=== PATIENT | male | born 1965 | race Caucasian/White ===

== ENCOUNTER 2017-02-28 09:24 | Outpatient (CLI) | payer MEDICARE, OTHER | END 2017-02-28 09:25 | disposition home or self-care (01) | LOC: RT 09:24 | PROVIDERS: ATTEND Orthopaedic Surgery Orthopaedic Surgery of the Spine | DX: Z01.810 Encounter for preprocedural cardiovascular examination (principal) | CPT/HCPCS: 93005 ==

== ENCOUNTER 2019-05-04 16:25 | Outpatient (CLI) | payer MEDICARE, OTHER ==
[2019-05-04 17:01] LABS: BASOPHILS % (AUTO) 0.7 %; EOSINOPHILS # (AUTO) 0.2 10^3/uL (0.0-0.7); EOSINOPHILS % (AUTO) 4.1 %; HGB - HEMOGLOBIN 14.8 g/dL (14.0-18.0); LYMPHOCYTES # (AUTO) 1.6 10^3/uL (1.5-3.5); MEAN CORPUSCULAR HEMOGLOBIN 30.3 pg (27.0-31.0); MEAN CORPUSCULAR HGB CONC 33.4 g/dL (32.0-36.0); MEAN CORPUSCULAR VOLUME 90.6 fL (80.0-94.0); MONOCYTES # (AUTO) 0.6 10^3/uL (0.0-1.0); MONOCYTES % (AUTO) 11.5 %; NEUTROPHILS # (AUTO) 2.9 10^3/uL (1.5-6.6); NEUTROPHILS % (AUTO) 54.3 %; PLT - PLATELET COUNT 248 10^3/uL (130-450); RED BLOOD COUNT 4.89 10^6/uL (4.70-6.10); RED CELL DISTRIBUTION WIDTH 12.8 % (12.0-15.0); WHITE BLOOD COUNT 5.4 x10^3/uL (4.8-10.8)
[2019-05-04 17:19] LABS: CREATININE 0.9 mg/dL (0.6-1.2)
== END 2019-05-04 16:26 | disposition home or self-care (01) ==
LOC: LAB 16:25
PROVIDERS: ATTEND Orthopaedic Surgery Orthopaedic Surgery of the Spine
DX: Z01.812 Encounter for preprocedural laboratory examination (principal); Z01.818 Encounter for other preprocedural examination
CPT/HCPCS: 36415; 80048; 85025; 93005

== ENCOUNTER 2022-08-19 23:55 | Outpatient (CLI) | payer MEDICARE, OTHER | END 2022-08-19 23:56 | disposition critical access hospital (66) | LOC: EMS 23:55 | DX: S51.812A Laceration without foreign body of left forearm, initial encounter (principal); S31.831A Laceration without foreign body of anus, initial encounter; W18.12XA Fall from or off toilet with subsequent striking against object, initial encounter; Y92.002 Bathroom of unspecified non-institutional (private) residence as the place of occurrence of the external cause | CPT/HCPCS: A0425; A0429 ==

== ENCOUNTER 2022-08-20 00:29 | Emergency (ER) | payer MEDICARE, OTHER ==
[2022-08-20] MEDS ORDERED: BACITRACIN ZINC OINT 1 PACKET TOP STA ×2 (00:44→01:10)
[2022-08-20] MEDS ORDERED: MORPHINE 2 MG/ML CARPUJECT IM STA (00:44)
--- OUTSIDE RECORDS SUMMARY | 2022-08-20 00:46 | EXTERNAL MEDICAL SUMMARY RPT | Continuity of Care Document ---
:1965 Author Organization [facility] Address [address] [place] [address] Phone Allergies No information. Encounters No information. Functional Status No information. Immunizations No information. Medications No information. Problems date description facility 2022-06-19 14:08 Unspecified visual disturbance [facility] 2022-06-19 14:08 Other malformations of cerebral vessels [facility] 2022-06-19 14:08 Headache, unspecified [facility] Procedures No information. Results/Labs No information. Social History No information. Vital Signs No information.
--- NOTE | 2022-08-20 00:58 | ED Physician Documentation ---
PD HPI SKIN - Stated complaint Stated Complaint: LEFT FOREARM LAC - Chief complaint Chief Complaint: Laceration - History obtained from History obtained from: Patient, Family (son), EMS - Additional information Additional information: 57-year-old man with past medical history of Left lower extremity paralysis presents after falling onto a metal piece of furniture and cutting the skin along his anus. Also has an abrasion to the left forearm.Denies head trauma or other injury. tdap utd. Review of Systems Skin: reports: Laceration (s) PD PAST MEDICAL HISTORY - Past Medical History Cardiovascular: High cholesterol Respiratory: Other Endocrine/Autoimmune: Other GI: GERD, Ulcers : None HEENT: None Psych: Post traumatic stress disorder Musculoskeletal: Osteoarthritis, Fatigue, Chronic back pain Derm: None, Other - Past Surgical History General: Other Ortho: Arthroscopic surgery HEENT: Tonsil/Adenoidectomy Derm: Skin cancer surgery - Present Medications Home Medications: Ambulatory Orders Medication Instructions Recorded Confirmed Atorvastatin Calcium 40 mg PO DAILY 08/20/22 08/20/22 Gabapentin [Neurontin] 300 mg PO TID 08/20/22 08/20/22 Hydrocodone/Acetaminophen 1 tab PO DAILY PRN 08/20/22 08/20/22 [Hydrocodone-Acetamin 7.5-300] Loratadine [Claritin] 10 mg PO DAILY PRN 08/20/22 08/20/22 Losartan Potassium [Cozaar] 100 mg PO DAILY 08/20/22 08/20/22 Sennosides/Docusate Sodium 1 each PO QDAC PRN #30 tablet 08/20/22 [Senna-Docusate Sodium Tablet] Sertraline HCl [Zoloft] 50 mg PO DAILY 08/20/22 08/20/22 Thyroid,Pork [[place] Thyroid] 90 mg PO DAILY 08/20/22 08/20/22 methocarbamoL [Methocarbamol] 500 mg PO DAILY PRN 08/20/22 08/20/22 polyethylene glycoL 3350 [Miralax] 17 gm PO DAILY #15 packet 08/20/22 traZODone [Desyrel] 50 mg PO QPM 08/20/22 08/20/22 - Allergies Allergies/Adverse Reactions: Allergies Allergy/AdvReac Type Severity Reaction Status Date / Time Pork/Porcine Containing Allergy Respiratory Verified 08/20/22 00:42 Products oxycodone HCl * AdvReac Intermediate Nausea Verified 08/20/22 00:42 [From Percocet] - Social History Does the pt smoke?: No Smoking Status: Never smoker Does the pt drink ETOH?: No Does the pt have substance abuse?: No PD ED PE NORMAL - Vitals Vital signs reviewed: Yes - General General: Alert and oriented X 3, No acute distress, Well developed/nourished - Rectal Rectal: Other (macerated laceration of anus at midline across from perineum along an external hemorrhoid. MAICO with good rectal tone and intact band of anal phincters) - Derm Derm: Other (abrasion L forearm) - Psych Psych: Normal mood, Normal affect Results - Vitals Vitals: Vital Signs - 24 hr 08/20/22 00:39 Temperature 37.1 C Heart Rate 81 Respiratory 20 Rate Blood Pressure 141/81 H O2 Saturation 97 Oxygen O2 Source Room air PD Medical Decision Making - ED course ED course: 57-year-old man presented with macerated anal laceration overlying external hemorrhoid. Analgesia provided and rectal exam was performed with no evidence of anal sphincter injury. 2cc lidocaine with epi instilled, bacitracin and dressing applied. tissue is too macerated for repair but will send him home with recommendation for bowel regimen, squeegee bottle/ symptomatic care, and 48-72 hour follow up for wound check. return precautions given. Departure - Departure Disposition: 01 Home, Self Care Clinical Impression: Maceration of periwound skin Condition: Good Instructions: ED Laceration All Follow-Up: Catrachita Hernandez MD [Provider Admit Priv/Credential] - Prescriptions: polyethylene glycoL 3350 [Miralax] 17 gm PO DAILY #15 packet Sennosides/Docusate Sodium [Senna-Docusate Sodium Tablet] 1 each PO QDAC PRN #30 tablet PRN Reason: Constipation Comments: You are seen in the emergency department for laceration of the anus. The tissue is highly macerated (ripped up) being monitored and kept extremely clean. Whenever you use the bathroom make sure that you wash gently clean with a squeegee bottle of warm water. You can also apply topical over the counter antibiotic ointment to the affected area. I am prescribing senna/docusate and miralax to help keep your stools soft and regular. Please follow-up with general surgery clinic with Dr. Hernandez for wound check this week.
[2022-08-20 01:50] VITALS: BP 128/89
== END 2022-08-20 01:50 | disposition home or self-care (01) ==
LOC: ED 00:29
DX: S31.831A Laceration without foreign body of anus, initial encounter (principal); S50.812A Abrasion of left forearm, initial encounter; W18.12XA Fall from or off toilet with subsequent striking against object, initial encounter; Y93.E8 Activity, other personal hygiene; Y92.002 Bathroom of unspecified non-institutional (private) residence as the place of occurrence of the external cause
CPT/HCPCS: 96372; 99283

== ENCOUNTER 2022-08-20 17:32 | Emergency (ER) | payer MEDICARE, OTHER ==
[2022-08-20 18:18] LABS: BASOPHILS % (AUTO) 0.3 %; EOSINOPHILS # (AUTO) 0.1 10^3/uL (0.0-0.7); EOSINOPHILS % (AUTO) 1.5 %; HCT - HEMATOCRIT 46.5 % (42.0-52.0); LYMPHOCYTES # (AUTO) 1.2 10^3/uL (1.5-3.5); LYMPHOCYTES % (AUTO) 12.7 %; MEAN CORPUSCULAR HEMOGLOBIN 29.7 pg (27.0-31.0); MEAN CORPUSCULAR HGB CONC 32.3 g/dL (32.0-36.0); MEAN CORPUSCULAR VOLUME 92.1 fL (80.0-94.0); MEAN PLATELET VOLUME 8.9 fL (7.4-11.4); MONOCYTES # (AUTO) 1.2 10^3/uL (0.0-1.0); NEUTROPHILS # (AUTO) 6.7 10^3/uL (1.5-6.6); NEUTROPHILS % (AUTO) 72.2 %; PLT - PLATELET COUNT 228 10^3/uL (130-450); RED BLOOD COUNT 5.05 10^6/uL (4.70-6.10); WHITE BLOOD COUNT 9.3 x10^3/uL (4.8-10.8)
[2022-08-20 18:30] LABS: ALBUMIN 4.3 g/dL (3.2-5.5); ALBUMIN/GLOBULIN RATIO 1.5 (1.0-2.2); BILIRUBIN,TOTAL 0.8 mg/dL (0.2-1.0); CALCIUM 9.4 mg/dL (8.5-10.3); CREATININE 0.7 mg/dL (0.6-1.2); POTASSIUM 3.8 mmol/L (3.5-5.0); TOTAL PROTEIN 7.1 g/dL (6.7-8.2)
--- NOTE | 2022-08-20 18:34 | CT Report ---
PROCEDURE: LUMBAR SPINE WO INDICATIONS: fall from wheelchair; stool/bladder incontinence TECHNIQUE: Noncontrast 3 mm thick sections acquired from the T12 level to the sacrum. Sagittal and coronal refo rmats were constructed. For radiation dose reduction, the following was used: automated exposure co ntrol, adjustment of mA and/or kV according to patient size. COMPARISON: 01/17/2015 FINDINGS: Image quality: Degraded by motion and metallic artifact Bones: Extensive posterior fusion hardware is present with interbody spacers at multiple levels. Ghos t tracks are present, indicating prior revisions. T12 corpectomy cage. No definite acute hardware failure. Soft tissues: There is a limited evaluation of the thecal sac without definite stenosis. There are no nobstructing bilateral renal calculi, partially seen. IMPRESSION: Significant imaging limitations as above. No definitely acute abnormality. Reviewed by: Rashaun Chow MD on 08/20/2022 6:33 PM PST Approved by: Rashaun Chow MD on 08/20/2022 6:33 PM PST Station ID: [id number]
[2022-08-20] MEDS ORDERED: HYDROmorphone 1 MG/ML CARPUJECT IVP STA ×2 (21:17→21:42)
--- NOTE | 2022-08-20 21:26 | ED Physician Documentation ---
History of Present Illness - Stated complaint Stated Complaint: BACK PX - Chief complaint Chief Complaint: Back Pain - Additonal information Additional information: History obtained from patient. He is a moderate historian. This 57-year-old gentleman presents to the emergency department under the advice of his neurosurgeon Dr. Kimble Associated with the [facility]'s. This patient has a longstanding history of back pain for which he had received extensive spinal fusion. Unfortunately over the course of his care he did develop some paralysis of his lower extremities. At baseline the patient is typically in a wheelchair though he can occasionally take a few steps with a walker. He is typically able to stand and transfer between wheelchair and toilet. Yesterday evening he was attempting to transfer between the wheelchair and toilet when he fell. He did sustain a laceration near his rectum. He was seen in this emergency department to receive wound care. He states that since being discharged he has had progressive numbness in his lower extremities. Especially the medial or inside portion. He also states that he has begun to have some genital numbness in his perineum scrotum and penis. He states he has been incontinent of stool though he did call that diarrheal. The ED provider last night noted normal rectal tone. Patient has not had any fevers. He was speaking with his neurosurgeon today regarding his worsening numbness though no new weakness and he was advised to come to the ER to obtain an MRI. Unfortunately at this hour of the day MRI is not available and will not be available until tomorrow in the morning. Meds: Gabapentin, omeprazole, [place], duloxetine, [place] Thyroid PD PAST MEDICAL HISTORY - Past Medical History Past Medical History: Yes Cardiovascular: High cholesterol Respiratory: Other Endocrine/Autoimmune: Other GI: GERD, Ulcers : None HEENT: None Psych: Post traumatic stress disorder Musculoskeletal: Osteoarthritis, Fatigue, Chronic back pain Derm: None, Other - Past Surgical History Past Surgical History: Yes General: Other Ortho: Arthroscopic surgery HEENT: Tonsil/Adenoidectomy Derm: Skin cancer surgery - Present Medications Home Medications: Ambulatory Orders Medication Instructions Recorded Confirmed Atorvastatin Calcium 40 mg PO DAILY 08/20/22 08/20/22 Gabapentin [Neurontin] 300 mg PO TID 08/20/22 08/20/22 Hydrocodone/Acetaminophen 1 tab PO DAILY PRN 08/20/22 08/20/22 [Hydrocodone-Acetamin 7.5-300] Loratadine [Claritin] 10 mg PO DAILY PRN 08/20/22 08/20/22 Losartan Potassium [Cozaar] 100 mg PO DAILY 08/20/22 08/20/22 Sennosides/Docusate Sodium 1 each PO QDAC PRN #30 tablet 08/20/22 [Senna-Docusate Sodium Tablet] Sertraline HCl [Zoloft] 50 mg PO DAILY 08/20/22 08/20/22 Thyroid,Pork [[place] Thyroid] 90 mg PO DAILY 08/20/22 08/20/22 methocarbamoL [Methocarbamol] 500 mg PO DAILY PRN 08/20/22 08/20/22 polyethylene glycoL 3350 [Miralax] 17 gm PO DAILY #15 packet 08/20/22 traZODone [Desyrel] 50 mg PO QPM 08/20/22 08/20/22 - Allergies Allergies/Adverse Reactions: Allergies Allergy/AdvReac Type Severity Reaction Status Date / Time Pork/Porcine Containing Allergy Respiratory Verified 08/20/22 17:44 Products oxycodone HCl * AdvReac Intermediate Nausea Verified 08/20/22 17:44 [From Percocet] - Social History Does the pt smoke?: No Smoking Status: Never smoker Does the pt drink ETOH?: No Does the pt have substance abuse?: No - Immunizations Immunizations are current?: Yes PD ED PE NORMAL - General General: Alert and oriented X 3, No acute distress, Well developed/nourished - Male Male : Other (Significant numbness in the perineum scrotum and ventral side of the penis) - Rectal Rectal: Other (Painful rectal exam. External hemorrhoid is noted. A macerated laceration abutting the edge of the anus is seen without surrounding erythema or purulence. Moderate serous drainage. I could not assess rectal tone due to discomfort) - Derm Derm: Normal color, Warm and dry - Extremities Extremities: Other (Patient is able to wiggle the toes on the right foot and lift the lower leg 3 inches off the bed. He cannot resist. Patient has movement of the left great toe only and can raise the leg 1 inch off bed without resistance). No: No calf tenderness / cord (Patient has new numbness medial bi lateral lower extremities feet calf and thighs; He is aware of touch but unable to differentiate sharp from dull. Lateral sensation appears preserved) - Neuro Neuro: Alert and oriented X 3, streetcar conductor 2-12 intact Eye Opening: Spontaneous Motor: Obeys Commands Verbal: Oriented GCS Score: 15 Results - Vitals Vitals: Vital Signs - 24 hr 08/20/22 08/20/22 08/20/22 17:39 17:44 19:44 Temperature 36.2 C L 36.5 C Heart Rate 90 90 88 Respiratory 16 16 16 Rate Blood Pressure 155/85 H 155/85 H 150/80 H O2 Saturation 95 95 96 08/20/22 21:00 Temperature Heart Rate 78 Respiratory 16 Rate Blood Pressure 124/85 H O2 Saturation 96 Oxygen O2 Source Room air - Labs Labs: Laboratory Tests 08/20/22 08/20/22 18:13 18:13 WBC 9.3 RBC 5.05 Hgb 15.0 Hct 46.5 MCV 92.1 MCH 29.7 MCHC 32.3 RDW 13.0 Plt Count 228 MPV 8.9 Neut # (Auto) 6.7 H Lymph # (Auto) 1.2 L [place] # (Auto) 1.2 H Eos # (Auto) 0.1 Baso # (Auto) 0.0 Absolute Nucleated RBC 0.00 Nucleated RBC % 0.0 Sodium 139 Potassium 3.8 Chloride 105 Carbon Dioxide 25 Anion Gap 9.0 BUN 14 Creatinine 0.7 Estimated GFR (MDRD) 117 Glucose 123 H Calcium 9.4 Total Bilirubin 0.8 AST 42 ALT 41 Alkaline Phosphatase 110 Total Protein 7.1 Albumin 4.3 Globulin 2.8 Albumin/Globulin Ratio 1.5 Lipase 31 - Rads (name of study) Ct lumbar Radiology: Final report received (Significant imaging limitations, no definite acute abnormality. Extensive posterior fusion hardware) PD Medical Decision Making - ED course Complexity details: reviewed results, re-evaluated patient, considered differential, d/w patient ED course: 57-year-old male presents to the emergency department for evaluation of increasing numbness in his bilateral lower extremities after a fall when transitioning between toilet and wheelchair yesterday. He did come into the emergency department because he had a laceration abutting his anus that was cleansed. He unfortunately has a history of paralysis in his lower extremities after extensive hardware fusion. However the new symptom over the last 24 hours has been the development of numbness in his lower inner feet and thighs as well as within his perineum and genitalia. I did do a rectal exam and he found it to be painful and could not complete a rectal tone check. We did do a bladder scan after void and found that he voided 500 mils and there was a residual volume of 200 mL. Patient has been in contact with his neurosurgeon who advised he come to the ER for an MRI but unfortunately at the time he arrived the MRI was no longer available. We did complete a CT scan of his lumbar spine that showed intact hardware. We also attempted multiple times to get in touch with his neurosurgeon but were [facility] as we were told that after 5 they have nobody patient companion. I did offer the patient to board overnight in the emergency department to get the MRI in the a.m. but he would prefer to go home tonight and return in the morning. I feel this is a reasonable alternative as the likelihood of transfer to an outside facility is extremely unlikely given the paucity of beds regionally. Patient was administered 10 mg of Decadron IV prior to discharge. He will return early in the a.m. at which time the MRI can be reordered and further evaluation will resume. Departure - Departure Disposition: 01 Home, Self Care Clinical Impression: Saddle anesthesia Condition: Stable Record reviewed to determine appropriate education?: Yes Comments: Ash you are advised to come to the emergency department after a fall at home yesterday and unfortunately you have begun to develop some numbness on the inside of both your legs as well as in your genital region. This is called saddle anesthesia. Your CT of the lumbar spine today showed intact hardware however your neurosurgeon would like you to get an MRI. By the time you arrived to our emergency department our MRI scanner was no longer operational for the day. We did offer to have you board in the emergency department overnight to obtain the MRI tomorrow but you prefer to be discharged home and return in the morning which is a reasonable solution at this time. In order to help with some of the numbness I am giving you a one-time dose of Decadron IV. If there is any inflammation this could help with swelling. Please return to the emergency department as soon as possible in the morning between 7 and 8 AM to check in and be seen by the ED provider. At that time the MRI can be ordered
[2022-08-20] MEDS ORDERED: DEXAMETHASONE 10 MG/ML VIAL IV STA (21:36)
[2022-08-20] MEDS ORDERED: HYDROmorphone 1 MG/ML CARPUJECT ONE (21:44)
[2022-08-20 21:52] VITALS: BP 144/78
== END 2022-08-20 21:51 | disposition home or self-care (01) ==
LOC: ED 17:32
DX: R20.0 Anesthesia of skin (principal); G83.89 Other specified paralytic syndromes; S31.831A Laceration without foreign body of anus, initial encounter; S50.812A Abrasion of left forearm, initial encounter; W18.12XA Fall from or off toilet with subsequent striking against object, initial encounter; Y93.E8 Activity, other personal hygiene
CPT/HCPCS: 36415; 51798; 72131; 80053; 83690; 85025; 96372; 96374; 96375; 99283; 99284; A9270; J1170

== ENCOUNTER 2022-08-21 07:32 | Emergency (ER) | payer MEDICARE, OTHER ==
--- NOTE | 2022-08-21 08:00 | ED Physician Documentation ---
PD HPI BACK PAIN - Stated complaint Stated Complaint: LEG WEAKNESS/NUMBNESS - Chief complaint Chief Complaint: Ext Problem - History obtained from History obtained from: Patient - History of Present Illness Timing - onset: How many days ago (he states he fell while transferring and landed onto object (magazine rack?) causing small lac and large bruising/tender in gluteal and perirectal area couple days ago. Was then having development of numbness in penis and some rectal incontinence and some feeling of numbness down back of right leg.), Other (was here to ER last evening and told to come back for MRI to ensure no new fractures nor any caudal impingement. He has had prior back surgery at [place] and the physical medicine office talked to him and directed him to get MRI.) PD PAST MEDICAL HISTORY - Past Medical History Cardiovascular: High cholesterol Respiratory: Other Endocrine/Autoimmune: Other GI: GERD, Ulcers : None HEENT: None Psych: Post traumatic stress disorder Musculoskeletal: Osteoarthritis, Fatigue, Chronic back pain (with back surgery lumbar area that led to partial paralysis of legs. wheelchair bound but has strength for standing for transfers.) Derm: None, Other - Past Surgical History Past Surgical History: Yes General: Other Ortho: Arthroscopic surgery HEENT: Tonsil/Adenoidectomy Derm: Skin cancer surgery - Present Medications Home Medications: Ambulatory Orders Medication Instructions Recorded Confirmed Atorvastatin Calcium 40 mg PO DAILY 08/20/22 08/20/22 Gabapentin [Neurontin] 300 mg PO TID 08/20/22 08/20/22 Hydrocodone/Acetaminophen 1 tab PO DAILY PRN 08/20/22 08/20/22 [Hydrocodone-Acetamin 7.5-300] Loratadine [Claritin] 10 mg PO DAILY PRN 08/20/22 08/20/22 Losartan Potassium [Cozaar] 100 mg PO DAILY 08/20/22 08/20/22 Sennosides/Docusate Sodium 1 each PO QDAC PRN #30 tablet 08/20/22 [Senna-Docusate Sodium Tablet] Sertraline HCl [Zoloft] 50 mg PO DAILY 08/20/22 08/20/22 Thyroid,Pork [[place] Thyroid] 90 mg PO DAILY 08/20/22 08/20/22 methocarbamoL [Methocarbamol] 500 mg PO DAILY PRN 08/20/22 08/20/22 polyethylene glycoL 3350 [Miralax] 17 gm PO DAILY #15 packet 08/20/22 traZODone [Desyrel] 50 mg PO QPM 08/20/22 08/20/22 Hydrocortisone [Anusol-Hc] 1 applic RC DAILY 6 Days #30 gm 08/21/22 - Allergies Allergies/Adverse Reactions: Allergies Allergy/AdvReac Type Severity Reaction Status Date / Time Pork/Porcine Containing Allergy Respiratory Verified 08/20/22 17:44 Products oxycodone HCl * AdvReac Intermediate Nausea Verified 08/20/22 17:44 [From Percocet] - Social History Does the pt smoke?: No Smoking Status: Never smoker Does the pt drink ETOH?: No Does the pt have substance abuse?: No - Immunizations Immunizations are current?: Yes PD ED PE NORMAL - Vitals Vital signs reviewed: Yes - General General: Alert and oriented X 3, Well developed/nourished - Rectal Rectal: Other (perirectal area with external hemorrhoid that is enlarged but does not feel thrombosed (soft/compressible). Small tear with dried blood at edge of it. Tenderness with swelling in gluteal area. ) - Back Back: Other (the back itself is not atender to palpation and no noted bruising of the area. ) - Derm Derm: Normal color, Warm and dry Results - Vitals Vitals: Vital Signs - 24 hr 08/21/22 08/21/22 08/21/22 07:52 12:00 14:00 Temperature 37.0 C Heart Rate 112 H 87 88 Respiratory 18 14 16 Rate Blood Pressure 160/96 H 136/92 H 133/87 H O2 Saturation 96 94 94 Oxygen O2 Source Room air - Rads (name of study) MRI lumbar and pelvic Radiology: Prelim report reviewed (prior hardware and operative changes are stable. Central canal is open and no caudal compression. Some degradation of the images due to the hardware. Pelvis without fracture. gluteal swelling/hematoma right in area of sciatic outlet. ), See rad report PD Medical Decision Making - ED course Complexity details: reviewed results (MRI without acute fractures nor caudal impingement. He has hematoma/swelling in gluteal near sciatic outlet, so likely having some nerve pressure from that causing nerve root symptoms down leg. Srea of injury wound also likely lead to soem pudendal nerve compression/swelling and thus numbness penis.), considered differential, d/w patient, d/w area development consultant (I talked with and gave results to [employer] at the [place] [facility] department to update them on findings. ) Departure - Departure Disposition: 01 Home, Self Care Clinical Impression: Contusion, buttock, Lower extremity numbness Condition: Stable Follow-Up: SHAYLEE HOANG [Physician No Access] - HARRY MALDONADO DO [Primary Care Provider] - Prescriptions: Hydrocortisone [Anusol-Hc] 1 applic RC DAILY 6 Days #30 gm Comments: Your MRIs did not show any central cord or caudal compression or abnormality. There is a hematoma and swelling in the gluteal area presumably this is putting some pressure on the sciatic nerve and probably pudendal nerve causing your symptoms. Follow-up with your sports physical therapist at the [place]. We did talk with the nurse practitioner who is on at this time with you in your room. We will fax the report to them and [facility] At this point continue your your usual medicines and treatments. You can use some hydrocortisone cream to the hemorrhoid area. Warm soaks or compresses may help as well. I would anticipate improvement in your new symptoms over several days to week as the swelling in the gluteal area improves. Discharge Date/Time: 08/21/22 14:31
--- OUTSIDE RECORDS SUMMARY | 2022-08-21 08:02 | EXTERNAL MEDICAL SUMMARY RPT | Continuity of Care Document ---
:1965 Author Organization [facility] Address [address] [place] [address] Phone Allergies No information. Encounters No information. Functional Status No information. Immunizations No information. Medications No information. Problems date description facility 2022-06-19 14:08 Unspecified visual disturbance [facility] 2022-06-19 14:08 Other malformations of cerebral vessels [facility] 2022-06-19 14:08 Headache, unspecified [facility] Procedures No information. Results/Labs No information. Social History No information. Vital Signs No information.
[2022-08-21] MEDS ORDERED: GADOBUTROL 10 MMOL/10 ML VIAL ONE (10:45)
--- NOTE | 2022-08-21 12:17 | MRI Report ---
PROCEDURE: PELVIS W/WO INDICATIONS: PRIOR LUMBAR SURGERIES, FALL WITH NEW PERINEAL/LEG SYMPTOMS TECHNIQUE: Pre and post gadolinium magnetic resonance images were obtained of the pelvis using multip le sequences and multiple planes. COMPARISON: 08/20/2022 CT FINDINGS: Image quality: Degraded by metallic artifact particular lumbar spine. Bones: The pelvic ring is intact. No acute/displaced fracture. No evidence of femoral head osteonecro sis. No suspicious osseous lesions. The lumbar spine findings are separately dictated. Soft tissues: In the right gluteus region, there is a intramuscular enhancing mass measuring 2.7 x 2. 8 x 2 point no mass is seen in the path of the greater sciatic notch bilaterally. The piriformis musc les are symmetric. Mild edema is seen in the left gluteus vianney. Intrapelvic structures are not well evaluated on this nondedicated study. The bladder and reproductiv e organs are unremarkable. No pathologic ascites or adenopathy No high-grade tendinopathy of the medius medius/minimus, hamstrings or other major muscle tendinous a ttachments. IMPRESSION: No acute pelvic ring disruption. Femoral heads appear intact. Intramuscular enhancing mass is seen in the right gluteal region. This is in close proximity to the e xpected path of the right sciatic nerve. Please correlate clinically for any symptoms. The piriformis muscles are symmetric. The presacral/lumbosacral plexus regions appear unremarkable. Lumbar spine findings are separately dictated. Reviewed by: Rashaun Chow MD on 08/21/2022 12:16 PM PST Approved by: Rashaun Chow MD on 08/21/2022 12:16 PM PST Station ID: [id number]
--- NOTE | 2022-08-21 12:33 | MRI Report ---
PROCEDURE: MRI lumbar spine with and without contrast INDICATIONS: PRIOR LUMBAR SURGERIES, FALL WITH NEW GENITAL/LEG SYMPTOMS CONTRAST: GADAVIST 9.0ML TECHNIQUE: Noncontrast sagittal T1 spin echo and T2 fast spin echo, sagittal STIR, axial T1 and T2 fast spin ech o through the lumbar spine. In cases with scoliosis, additional coronal T2 fast spin echo may be per formed. After the administration of contrast, sagittal and axial T1 spin echo with fat saturation th rough the lumbar spine. COMPARISON: 01/17/2015 FINDINGS: Image quality: Large posterior kd and screw construct as well as corpectomy cage degrades image qual ity throughout the exam. T12 corpectomy with strut cage as well as a decompressive laminectomies at the thoracolumbar junction remains unchanged in prior exam. Kd and screw instrumentation as well as discectomy and interbody f usion extends throughout the visualized thoracic and lumbosacral spine. The central canal remains patent throughout the exam, given limitations. No evidence of new stenosis or conus compression. Right-sided moderate foraminal stenosis is noted at T12-L1 and L1-2 as well as L5-S1. The left forame n at the thoracolumbar junction is obscured by instrumentation. Moderate L5-S1 foraminal stenosis IMPRESSION: 1. Although there is significant limitation, the central canal appears patent throughout without sign ificant stenosis or conus compression 2. T12 corpectomy, thoracolumbar decompressive laminectomies and large posterior kd and screw constr uct throughout the thoracolumbar spine Reviewed by: Kamran Wilkinson MD on 08/21/2022 11:31 AM [facility] [[email or web address]] Approved by: Kamran Wilkinson MD on 08/21/2022 11:31 AM [facility] [[email or web address]] Station ID: [id number]
[2022-08-21] MEDS ORDERED: GADOBUTROL 7.5 MMOL/7.5 ML VIAL IVP ONE (13:53)
[2022-08-21] MEDS ORDERED: GADOBUTROL 10 MMOL/10 ML VIAL IVP ONE (13:55)
[2022-08-21 14:09] VITALS: BP 133/87
== END 2022-08-21 14:31 | disposition home or self-care (01) ==
LOC: ED 07:32
DX: S30.0XXA Contusion of lower back and pelvis, initial encounter (principal); W19.XXXA Unspecified fall, initial encounter
CPT/HCPCS: 72158; 72197; 99284; A9585